=== PATIENT | female | born 1985 | race African-American/Black ===

== ENCOUNTER 2021-10-13 06:02 | Inpatient (IN) ==
[2021-10-07 11:41] LABS: Mucus,Urine Few /LPF (Occasional); RBC,Urine 1 /HPF (0-4); Squamous Epithelial Cell,Urine Occasional /HPF (0-10)
[2021-10-07 11:43] LABS: Bilirubin,Urine Negative (Negative); Blood, Urine Negative (Negative); Glucose,Urine (UA) Negative (Negative); Ketones,Urine Negative (Negative); Nitrite,Urine Negative (Negative); Protein,Urine Negative (Negative); Urine Appearance Turbid (Clear); Urine Color Yellow (Yellow); Urine Specific Gravity 1.025 (1.001-1.035); Urine pH 5.5 (4.5-8.0)
[2021-10-07 11:50] LABS: Basophils % 0.7 % (0.0-0.8); Eosinophils # 0.2 10*3/uL (0.0-0.87); Eosinophils % 3.7 % (0.00-10.9); Hematocrit 37.9 VOL% (35.7-47.0); Hemoglobin 12.4 GM/DL (12.0-16.0); Immature Granulocytes % 0.4 %; Immature Granulocytes Absolute 0.02 #; Lymphocytes # 1.8 10*3/uL (1.4-4.0); Lymphocytes % 39.7 % (21.3-54.2); Mean Corpuscular HGB Conc 32.7 GM/DL (32-36); Mean Corpuscular Volume 92.9 FL (87-102); Monocytes # 0.4 10*3/uL (0.11-0.8); Monocytes % 9.1 % (1.7-12.7); Neutrophils % 46.4 % (38.7-73.9); Platelet Count 279 T/CUMM (130-400); Red Blood Count 4.08 MC/CUMM (3.8-5.5); Red Cell Distribution Width 12.6 % (9.3-17.3); White Blood Count 4.6 T/CUMM (4-12)
[2021-10-07 11:59] LABS: Albumin 3.5 G/DL (3.4-5.0); Bilirubin,Total 0.7 MG/DL (0.20-1.00); Osmolality,Calculated 269.8 MOS/KG (273-304); Potassium 4.4 MMOL/L (3.5-5.1); Risk Ratio 2.69; Total Protein 7.4 G/DL (6.4-8.2)
[2021-10-07 12:31] LABS: HIV Antigen/Antibody Result Nonreactive (Nonreactive)
[2021-10-13] MEDS ORDERED: LIDOCAINE 2% 5 ML VIAL ONE (06:22)
[2021-10-13] MEDS ORDERED: ROCURONIUM 50 MG/5 ML VIAL IV ONE ×2 (06:22→06:23)
[2021-10-13] MEDS ORDERED: propofoL 200 MG/20 ML VIAL IV ONE (06:22)
[2021-10-13] MEDS ORDERED: MIDAZOLAM 2 MG/2 ML VIAL ONE (06:23)
[2021-10-13] MEDS ORDERED: fentaNYL 100 MCG/2 ML VIAL ONE ×2 (06:23→08:16)
[2021-10-13] MEDS ORDERED: AMPICILLIN/SULBACTAM 3,000 MG VIAL ONE (06:30)
[2021-10-13] MEDS ORDERED: FAMOTIDINE 20 MG TABLET PO ONE (06:44)
[2021-10-13] MEDS ORDERED: GABAPENTIN 400 MG CAPSULE PO ONE (06:44)
[2021-10-13] MEDS ORDERED: ACETAMINOPHEN 500 MG TABLET PO ONE (06:44)
[2021-10-13] MEDS ORDERED: LIDOCAINE 1% 5 ML VIAL ONE (06:47)
[2021-10-13] MEDS ORDERED: DEXAMETHASONE 4 MG/1 ML VIAL ONE ×2 (06:47→08:48)
[2021-10-13] MEDS ORDERED: BUPIVACAINE MPF 0.25% 30 ML VIAL ONE (06:47)
[2021-10-13] MEDS ORDERED: LACTATED RINGERS 1,000 ML IV SCH (07:00)
[2021-10-13] MEDS ORDERED: PHENYLEPHRINE 1 MG/10 ML SYRINGE IV ONE (08:31)
[2021-10-13] MEDS ORDERED: LACTATED RINGERS 1,000 ML IV ONE ×2 (08:35→09:49)
[2021-10-13] MEDS ORDERED: ONDANSETRON 4 MG/2 ML VIAL ONE ×2 (08:47→10:29)
[2021-10-13] MEDS ORDERED: GLYCOPYRROLATE 0.4 MG/2 ML VIAL ONE (08:50)
[2021-10-13] MEDS ORDERED: NEOSTIGMINE 10 MG/10 ML VIAL ONE (08:51)
[2021-10-13] MEDS ORDERED: ePHEDrine 50 MG/ML VIAL ONE (09:41)
[2021-10-13] MEDS ORDERED: SEVOFLURANE 1 UNIT/15 MINUTE INH ONE (09:45)
[2021-10-13] MEDS ORDERED: ONDANSETRON 4 MG/2 ML VIAL IV PRN ×2 (10:20→10:29)
[2021-10-13] MEDS ORDERED: ACETAMINOPHEN 325 MG TABLET PO PRN (10:20)
[2021-10-13] MEDS ORDERED: BENZOCAINE/MENTHOL LOZENGE 18/BOX PO PRN (10:20)
[2021-10-13] MEDS ORDERED: BISACODYL 10 MG SUPP RECTAL PRN (10:20)
[2021-10-13] MEDS ORDERED: HYDROmorphone 1 MG/1 ML SYRINGE ONE (10:29)
[2021-10-13] MEDS: HYDROmorphone 1 MG/1 ML SYRINGE IV PRN ×6 (10:31→23:48)
[2021-10-13] MEDS: LACTATED RINGERS 1,000 ML IV SCH (16:45)
[2021-10-13 17:54] LABS: Basophils % 0.1 % (0.0-0.8); Hematocrit 36.6 VOL% (35.7-47.0); Hemoglobin 12.4 GM/DL (12.0-16.0); Immature Granulocytes % 0.2 %; Immature Granulocytes Absolute 0.02 #; Lymphocytes # 0.8 10*3/uL (1.4-4.0); Lymphocytes % 6.4 % (21.3-54.2); Mean Corpuscular HGB Conc 33.9 GM/DL (32-36); Mean Corpuscular Volume 91.3 FL (87-102); Mean Platelet Volume 9.9 FL (9.6-12.0); Monocytes # 0.5 10*3/uL (0.11-0.8); Monocytes % 3.9 % (1.7-12.7); Neutrophils % 89.4 % (38.7-73.9); Platelet Count 282 T/CUMM (130-400); Red Blood Count 4.01 MC/CUMM (3.8-5.5); Red Cell Distribution Width 12.1 % (9.3-17.3); White Blood Count 11.8 T/CUMM (4-12)
[2021-10-14] MEDS: LACTATED RINGERS 1,000 ML IV SCH ×2 (01:10→09:53)
[2021-10-14] MEDS: IBUPROFEN 800 MG TABLET PO PRN ×2 (02:53→19:54)
[2021-10-14 05:26] LABS: Basophils % 0.3 % (0.0-0.8); Hematocrit 35.6 VOL% (35.7-47.0); Hemoglobin 11.9 GM/DL (12.0-16.0); Immature Granulocytes % 0.4 %; Immature Granulocytes Absolute 0.05 #; Lymphocytes # 1.6 10*3/uL (1.4-4.0); Lymphocytes % 13.8 % (21.3-54.2); Mean Corpuscular HGB Conc 33.4 GM/DL (32-36); Mean Corpuscular Volume 90.8 FL (87-102); Mean Platelet Volume 10.4 FL (9.6-12.0); Monocytes % 8.8 % (1.7-12.7); Neutrophils % 76.7 % (38.7-73.9); Platelet Count 300 T/CUMM (130-400); Red Blood Count 3.92 MC/CUMM (3.8-5.5); Red Cell Distribution Width 12.3 % (9.3-17.3); White Blood Count 11.3 T/CUMM (4-12)
[2021-10-14] MEDS: METOCLOPRAMIDE 10 MG TABLET PO SCH ×5 (06:56→17:09)
[2021-10-14] MEDS: SIMETHICONE CHEW 80 MG TABLET PO PRN ×3 (06:57→19:54)
[2021-10-14] MEDS: MAGNESIUM HYDROXIDE SUSP 30 ML UDCUP PO PRN ×2 (09:52→19:56)
[2021-10-14] MEDS: DOCUSATE SODIUM 100 MG CAPSULE PO PRN ×2 (09:53→19:53)
[2021-10-15] MEDS: METOCLOPRAMIDE 10 MG TABLET PO SCH ×4 (00:24→17:03)
[2021-10-15] MEDS: IBUPROFEN 800 MG TABLET PO PRN ×2 (03:33→13:40)
[2021-10-15] MEDS: DOCUSATE SODIUM 100 MG CAPSULE PO PRN (08:02)
[2021-10-15] MEDS: MAGNESIUM HYDROXIDE SUSP 30 ML UDCUP PO PRN (08:02)
[2021-10-15] MEDS: SIMETHICONE CHEW 80 MG TABLET PO PRN (08:02)
[2021-10-15 16:18] VITALS: BP 116/61
[2021-10-16] MEDS ORDERED: AMPICILLIN/SULBACTAM 3,000 MG in SODIUM CHLORIDE 0.9% 100 ML IV ONE (07:00)
== END 2021-10-15 18:15 | disposition home or self-care (01) | DRG 743 ==
LOC: N.OR 06:02 → N.SDSINP 06:02 → N.OB 11:05 → EDSTATUS 10-16 13:15
PROVIDERS: ADMIT Obstetrics & Gynecology; ATTEND Obstetrics & Gynecology